=== PATIENT | male | born 1990 | race Caucasian/White ===

== ENCOUNTER 2024-10-19 08:34 | Day surgery (SDC) | payer OTHER ==
[2024-10-19] MEDS ORDERED: Sodium Chloride 0.9(Preservative Free) 10 ML IJ ONE (08:35)
[2024-10-19] MEDS ORDERED: dexAMETHasone sodium phosphate IJ ONE (08:35)
[2024-10-19] MEDS ORDERED: propofoL IV ONE (10:28)
--- NOTE | 2024-10-19 12:11 | XRAY ---
Indication: Right L4-S1 transforaminal ZULEIKA. Intraoperative fluoroscopy provided for 19 seconds. 4 digital spot image submitted for interpretation demonstrates posterior needle tips projecting over expected right L4 and L5 nerve roots. Small amount of contrast injected for needle tip placement. Correlate with intraoperative findings/report.
--- NOTE | 2024-10-19 12:17 | XRAY ---
19 seconds of fluoroscopy was used in surgery for a right L4-S1 transforaminal ZULEIKA.
== END 2024-10-19 11:05 | disposition home or self-care (01) ==
LOC: SDC-PAIN 08:34
PROVIDERS: ATTEND Psychiatry & Neurology Pain Medicine
DX: M54.16 Radiculopathy, lumbar region (principal)
CPT/HCPCS: 64483; 64484; 72100; 77003; J1100; J2704; Q9966

== ENCOUNTER 2024-12-20 11:36 | Day surgery (SDC) | payer OTHER ==
[2024-12-20] MEDS ORDERED: Sodium Chloride 0.9(Preservative Free) 10 ML IJ ONE (11:37)
[2024-12-20] MEDS ORDERED: Depo-Medrol 40 MG/ML IM ONE (11:37)
[2024-12-20] MEDS ORDERED: propofoL IV ONE (14:23)
--- NOTE | 2024-12-20 15:02 | XRAY ---
Indication: Caudally ZULEIKA. Intraoperative fluoroscopy provided for 26 seconds. 2 digital spot image submitted for interpretation demonstrate caudal needle tip projecting mid sacrum. Small amount of contrast injected for needle tip placement. Correlate with intraoperative findings/report.
--- NOTE | 2024-12-20 16:29 | XRAY ---
26 seconds of fluoroscopy was used in surgery for a caudal ZULEIKA.
== END 2024-12-20 13:08 | disposition home or self-care (01) ==
LOC: SDC-PAIN 11:36
PROVIDERS: ATTEND Psychiatry & Neurology Pain Medicine
DX: M54.16 Radiculopathy, lumbar region (principal)
CPT/HCPCS: 62323; 72220; J2704; Q9966